=== PATIENT | female | born 1950 | race Caucasian/White ===

== ENCOUNTER 2019-12-30 05:59 | Emergency (ER) | payer MEDICARE, OTHER ==
[~2019-12-30] VITALS: Ht 160 cm; Wt 105.7 kg
[~2019-12-30 05:59] MED LIST: ASPIRIN EC81 MG PO; ATORVASTATIN CA40 MG PO; CITALOPRAM HBR20 MG PO; HYDROCHLOROTHIA25 MG PO; OMEPRAZOLE20 MG PO; POTASSIUM CHLO10 ME1 PO; SIMVASTATIN40 MG PO; VITAMIN D-32000 UNIT PO
[2019-12-30] MEDS ORDERED: LOSARTAN POTASS50 MG PO (06:12)
[2019-12-30] MEDS ORDERED: POTASSIUM CHLO20 ME1 PO (06:13)
[2019-12-30] MEDS ORDERED: RANITIDINE HCL150 MG PO (06:13)
[2019-12-30] MEDS ORDERED: FUROSEMIDE40 MG PO (06:13)
--- NOTE | 2019-12-30 07:39 | EKG ---
[facility] [address] [facility] [place] [address] Signed Sinus rhythm with 1st degree AV block Low voltage QRS Prolonged QT Abnormal ECG No previous ECGs available Confirmed by GERARDO WINN MD [id number] on 12/30/2019 7:38:52 AM Electronically Signed By: GERARDO WINN MD 12/30/19 0739 PATIENT NAME: SANJU GONG MARÍA Electrocardiogram DATE OF : 48 PHYSICIAN: GERARDO WINN MD REPORT #: [id number] REPORT IS CONFIDENTIAL AND NOT TO BE RELEASED WITHOUT AUTHORIZATION
== END 2019-12-30 08:18 | disposition home or self-care (01) ==
LOC: ED 05:59
DX: E87.6 Hypokalemia (principal); I10 Essential (primary) hypertension; Z79.899 Other long term (current) drug therapy; Z91.040 Latex allergy status; Z88.8 Allergy status to other drugs, medicaments and biological substances; Z88.0 Allergy status to penicillin; Z88.1 Allergy status to other antibiotic agents
CPT/HCPCS: 51701; 70450; 80053; 81001; 83735; 84484; 85025; 93005; 93010; 99285-25; J7040